=== PATIENT | female | born 1990 | race Caucasian/White ===

== ENCOUNTER 2019-03-29 07:11 | Emergency (ER) | payer OTHER, MEDICAID, SELFPAY ==
[2019-03-29 07:12] VITALS: BP 150/79; PULSE 117; RESP 16; TEMP 36.6; O2SAT 100; BMI 23.3
--- NOTE | 2019-03-29 07:19 | ED.VIS.GEN ---
History of Present Illness Chief Complaint: Laceration Informant: Patient Onset: Today Context: Sudden Onset Timing: Continuous Quality: None Location: Dorsal surface left hand between thumb and index finger Current Severity: There is no pain Maximum Severity: Mild Worsened by: Nothing Relieved by: Nothing Associated Symptoms: None Narrative: Patient presents with laceration webspace dorsal surface left hand. She is right-hand dominant. Last tetanus 2 years ago. Denies paresthesia, anesthesia medics. This occurred at work. She has no other complaints. Prior similar symptoms: No Recent Illness/Hospitalization: No - Past Medical History (1) Marijuana use Status: Acute Comment: No current use (2) Smoker within last 12 months Status: Acute Comment: No current use Past Medical History - Allergies and Home Meds Allergies/Adverse Reactions: Allergies amoxicillin Allergy (Verified 03/29/19 07:15) Anaphylaxis bee pollen Allergy (Verified 03/29/19 07:15) Anaphylaxis latex Allergy (Verified 03/29/19 07:15) Anaphylaxis shellfish derived Allergy (Verified 03/29/19 07:15) Shortness of breath Primary Care Physician: ,Care [GROUP OF PHYSICIANS] - 10 Day for suture removal Care Physician,No Primary [Primary Care Provider] - Prior records reviewed: Yes Lives: Spouse/ Significant Other, With Family Smoking Status: Former smoker - Stopped after finding out she was Alcohol: Rare Drugs: Marijuana Review of Systems Musculoskeletal: Denies: Swelling, Extremity Pain Skin: Reports: Wounds. Denies: Rash, Abrasions Neurological: Denies: Weakness, Parasthesia, Numbness Hematologic: Denies: Easy bruising, Easy bleeding Physical Exam Vital Signs/Narrative: Vital Signs Temp Pulse Resp BP Pulse Ox 03/29/19 07:12 97.8 F 117 H 16 150/79 H 100 Inital Vital Signs reviewed: Yes General: Well nourished, Well developed, No Acute Distress Head: Normocephalic, Atraumatic Eyes: Perrl, EOMI. Negative for: Pale conjunctiva, Scleral icterus Cardiovascular: Regular rate, Regular rhythm Respiratory: No distress Extremities: Nontender, No edema, - - There is a 1.7 cm laceration dorsal surface left hand between the thumb and index finger. Capillary refill is normal. Sensation is normal. Median, axillary and ulnar function intact. Skin: Normal color, No rash, Trauma. Negative for: Cyanosis, Diaphoresis, Jaundice, No Trauma Neurological: Alert, Oriented x3, Cranial nerves II-XII grossly intact, Normal Strength, Normal Sensation Psychological: Normal affect Diagnostic/Tx/Re-eval - Medical Decision Making She has a laceration that is through the dermis. There is no neurovascular findings. Plan is to anesthetize and suture. This occurred with a box knife there is no need for imaging. Procedures - Lacerations No standard instances Length: 0.67 in Depth: Sub Q Shape: Curvilinear gaping Prep: Elva Laceration repair: Irrigated, Lidocaine, Local Irrigated (ml): 100 Number of Sutures/Girma: 4 Suture Information: Ethilon, Simple, 5-0 ED Disposition - Plan for ED Patient: Disposition: Home or Assisted Living Diagnosis: Laceration of left hand without foreign body Instructions: LACERATION, Hand Referrals: Care Physician,No Primary [Primary Care Provider] - Corporate,Care [GROUP OF PHYSICIANS] - 10 Day for suture removal Additional Instructions: 1. Clean wound with peroxide on a Q-tip 3 times a day. 2. Apply bacitracin ointment after cleaning with peroxide. 3. Keep wound clean and dry.
== END 2019-03-29 07:52 | disposition home or self-care (01) ==
PROVIDERS: Emergency Provider Emergency Medicine
DX: S61.412A Laceration without foreign body of left hand, initial encounter (principal); W45.8XXA Other foreign body or object entering through skin, initial encounter; Y93.9 Activity, unspecified; Y92.9 Unspecified place or not applicable; Y99.0 Civilian activity done for income or pay; Z91.040 Latex allergy status; Z87.891 Personal history of nicotine dependence
CPT/HCPCS: 12001; 99284

== ENCOUNTER 2021-08-18 06:27 | Day surgery (SDC) | payer BC, MEDICAID, SELFPAY ==
--- NOTE | 2021-08-02 16:29 | PCM.HP.BLA ---
History and Physical Date of Admission: 08/18/21 HPI: The patient is a 31 year old female presenting for pre-operative visit. She is scheduled for laparoscopic bilateral salpingectomy, for sterilization on 08/02/21. Procedure discussed along with risks, benefits and complications. Other alternatives discussed for management. Consent form signed? Yes. ? ? PAST MEDICAL HISTORY PAST MEDICAL HISTORY Diagnosis Date ? Abnormal Pap smear of cervix ? ? Allergic rhinitis, cause unspecified ? ? Allergic rhinitis ? Asthma ? ? Migraine headache ? ? ? PAST SURGICAL HISTORY PAST SURGICAL HISTORY Procedure Laterality Date ? PAST SURGICAL HISTORY OF ? ? ? BONE MARROW DONOR ? ? ? CURRENT MEDICATIONS Current Outpatient Medications Medication Sig Dispense Refill ? levonorgestrel (MIRENA) 20 mcg/24 hr (5 years) IUD Inserted in office 1 Each 0 ? Zazhoeuz-Ir-Tqh-Fe-FA ( VITAMIN) tab Take 1 tablet by mouth once daily. (Patient not taking: Reported on 06/22/2021 ) 30 tablet 10 ? loratadine (CLARITIN) 10 mg tablet Take 1 tablet by mouth once daily. (Patient not taking: Reported on 06/22/2021 ) 30 tablet 2 ? No current facility-administered medications for this visit. ? ? ALLERGIES: Bee Pollen, Seasonal Allergies, Amoxicillin, Latex, Pineapple, and Shellfish ? PERSONAL HISTORY: SOCIAL HISTORY Social History ? Tobacco Use ? Smoking status: Former Smoker ? Smokeless tobacco: Never Used ? Tobacco comment: quit smoking when found out Vaping Use ? Vaping Use: current everyday user Substance Use Topics ? Alcohol use: Yes ? ? Comment: Occasionally ? Drug use: No ? FAMILY HISTORY: FAMILY HISTORY FAMILY HISTORY Problem Relation Age of Onset ? Migraines Mother ? ? Lipids Sister ? ? Cancer Sister ? ? LEUKEMIA ? other (Scolosis) Sister ? ? Asthma Maternal Grandmother ? ? Diabetes Maternal Grandmother ? ? Hypertension Maternal Grandmother ? ? Thyroid Maternal Grandmother ? ? Stroke Maternal Grandfather ? ? other (M.S.) Paternal Grandmother ? ? Cancer Maternal Aunt ? ? 6 DIFFERENT CANCERS ? Diabetes Paternal Uncle ? ? Breast Cancer Other ? ? MGAUNT ? Emphysema Other ? ? MGGF ? Heart Other ? ? PR,MGGM ? Stroke Other ? ? MGGF ? ? REVIEW OF SYMPTOMS: GENERAL: denies fevers or chills ENDOCRINOLOGY: has not been on steroids Cardiology : denies palpitations or chest pain Respiratory: denies SOB or cough Hematology: denies history of prolonged bleeding or easy bruising or VTE Allergy: Denies history of personal or family history of allergy to anesthesia ? PHYSICAL EXAMINATION: ? VITALS: Last menstrual period 06/18/2021, currently . ? GENERAL: The patient is well nourished, well hydrated in no acute distress. , The patient is oriented to time, place, and person. NECK: Supple. No lynphadenopathy, normal thyroid, no thyromegaly. LUNGS: Clear to auscultation bilaterally. no wheezes, rhonchi or rales HEART: Regular rate and rhythm, Normal heart sounds and No murmurs or gallops ? IMPRESSION: preop - sterilization request ? PLAN: The risks/benefits/alternatives and personal involved for the planned laparoscopic bilateral salpingectomy were reviewed with the patient. Her questions were answered to her satisfaction and she desires to proceed. Consent was signed. I reviewed with her postop instructions and expectations. ? ? I have reviewed and updated past medical and surgical history, medications and allergies Assessment & Plan Assessment/Plan (1) Sterilization:
[2021-08-18] MEDS: Lactated Ringers 1,000 ML 15 ML IV (06:45)
[2021-08-18 06:50] VITALS: PULSE 99; RESP 18; TEMP 36.1; O2SAT 100; BMI 27.5
[2021-08-18] MEDS: Celecoxib 200 MG Capsule 400 MG PO (06:56)
[2021-08-18] MEDS: Acetaminophen 500 MG Tablet 1000 MG PO (06:56)
[2021-08-18 07:03] LABS: Hematocrit 42.2 % (37-47); Hemoglobin 14.3 g/dL (12.0-15.0); Mean Corp Hgb Conc 33.9 g/dL (32-36); Mean Corpuscular Hgb 30.6 pg (27.0-32.0); Mean Corpuscular Volume 90.4 fL (81-99); Mean Platelet Vol. 9.6 fl (6.2-12.0); Platelet Count 273 K/mm3 (150-450); RBC Distribution Width CV 12.2 % (11.6-14.6); RBC Distribution Width SD 40.1 fl (35.1-43.9); Red Blood Count 4.67 M/mm3 (4.2-5.4); White Blood Count 6.2 K/mm3 (4.4-11.0)
[2021-08-18 07:09] LABS: Internal QC Validated? YES +Cl - CLEAR BKGD; Pregnancy, Urine Negative Negative
--- NOTE | 2021-08-18 08:14 | PCM.OPRPT ---
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
--- NOTE | 2021-08-18 08:25 | FALS_PTH ---
PATIENT: ZAINA MENDES [place] [facility] [id number] AGE/SX: 31/F ROOM: RE08/18/[address]: Dr. Kindra Blair MD : 1990 BED: DIS: 08/18/2021 SPEC #: [id number] RECD: 08/18/21 12:24 STATUS: SERENITY REFranky #: [id number] CHRISTY: 08/18/21 08:[address]: Kindra Blair DEPT: SURGICAL PATHOLOGY RECD BY: Uvaldo Mann ENTERED: 08/18/21 13:28 SP TYPE: FALL TUBES OTHR DR: No Primary Care Phys Tissues: Fallopian tube Procedures: Surgery Specimen Level II HEADER OPERATION: Laparoscopic salpingectomy PRE-OP DIAGNOSIS: Sterilization TISSUE SUBMITTED: Bilateral fallopian tubes MICROSCOPIC DIAGNOSIS Bilateral fallopian tubes, salpingectomy: Bilateral fallopian tubes, no pathologic diagnosis. SJ:alida 08/19/2021 MICROSCOPIC DESCRIPTION Slides are reviewed. GROSS DESCRIPTION Received in fixative is one container labeled with the patient's name and designated bilateral fallopian tubes. The specimen consists of bilateral fallopian tubes including fimbrial ends measuring 7.5 cm in length and 0.4 cm in diameter and 7 cm in length and 0.5 cm in diameter. The fallopian tubes are not identified as right or left. Sections reveal unremarkable cut surfaces. Machine Operator Assistant sections are submitted in two cassettes with each cassette containing one fallopian tube. / SJ:alida 08/18/2021 TC:4 CPT: 13915 x2
--- NOTE | 2021-08-18 09:00 | DCINST_ITS ---
Discharge Instructions Follow Up Care Test Results: Test results from this visit will be discussed in further detail at your follow- up appointment, if applicable. Discharge Plan Admission Primary Reason for Your Visit: Tubal sterilization Attending Provider: Kindra Blair Primary Care Provider: Naomi Lu Primary Instructions Forms: Work Excuse Patient Instructions: Discharge Instruction for ... Discharge Orders/Prescriptions Prescriptions: New ibuprofen [ibuprofen] 600 MG tablet 600 mg PO Q6H PRN (Reason: Pain) Qty: 60 1RF Discontinued naproxen 500 mg Tablet 500 mg PO BID PRN (Reason: Pain) Referrals / Follow Up: Care Physician,No Primary [Primary Care Provider] - Disposition Disposition (needs filled in before D/C Order can be placed): Home, Self Care
[2021-08-18] MEDS: Bupivacaine Mpf 0.5% 30 ML VIAL (09:07)
--- NOTE | 2021-08-18 09:28 | PCM.OPRPT ---
Problems Associated Problem List Diagnoses (1) Vaginal delivery: Report of Operation Date of Procedure: 08/18/21 Pre-Operative Diagnosis: sterilzation request Post-Operative Diagnosis: same Surgery/Procedure Performed:: Laparoscopic bilateral salpingectomy Description of Surgical Findings:: Normal uterus, tubes and ovaries, normal cervix and vagina Surgeon: Kindra Blair value analysis coordinator: None Type of Anesthesia: General Anesthesiologist: Latia Ochoa Special Medications: none Specimen's removed: bilateral fallopian tubes Drains: none Estimated Blood Loss (mL): 5 Fluids Replaced: 500 Description of Procedure: The patient was taken to the operating room where she was prepped and draped in the dorsolithotomy position. A weighted speculum was placed in the vagina and the anterior lip of the cervix was grasped with a tenaculum. The Rachel uterine manipulator was placed and the remainder of the instruments were removed from the vagina. Attention was turned to the abdomen. All port sites were infiltrated with 0.5% Marcaine before skin incisions were made. A 5 mm intraumbilical incision was made. The anterior abdominal wall was tented up with 2 towel clamps while a 5 mm blade less trocar and sleeve were directly inserted. Intraperitoneal placement was confirmed with the laparoscope. The pneumoperitoneum was created and the underlying abdominal contents were intact. The patient was placed in Trendelenburg. Right and left lower quadrant ports were placed under direct visualization lateral to the inferior epigastric vessels. The bowel was swept away and the above findings were noted. The LigaSure device was used to clamp seal and transect the antimesenteric portions of the right tube to the cornual insertion of the uterus. The tube was amputated from the uterus and the pedicles were all confirmed to be hemostatic. The same procedure was performed on the contralateral side. The specimens were brought out through a 5 mm port. The pedicles were again examined and found to be hemostatic. The lateral ports were removed under direct visualization and no active bleeding was noted. The pneumoperitoneum was released. The skin incisions were closed with Monocryl suture in a subcuticular fashion and skin glue. The vaginal instruments were removed and the vaginal sweep was completed by me. The entire procedure was performed by me. All sponge and needle counts were correct and the patient was taken to the recovery room in stable condition. Grafts/Implants Used: none Procedure Start Time: :07 Procedure Stop Time: :21 Complications none Admit VTE Documentation VTE Present on Admission: No VTE Mechan Device Prophylaxis: SCD's VTE Pharm Prophylaxis ordered?: No Reason prophylaxis not ordered:: Procedure Not Indicated
[2021-08-18 09:30] VITALS: BP 119/61; BP 123/67; PULSE 66; RESP 16; TEMP 36.4; O2SAT 97
[2021-08-18 09:45] VITALS: BP 123/67; BP 99/88; PULSE 63; RESP 16; O2SAT 100
[2021-08-18 10:10] VITALS: BP 115/57; BP 123/67; PULSE 65; RESP 16; TEMP 37.1; O2SAT 100
[2021-08-18 11:13] VITALS: BP 119/68; BP 123/67; PULSE 67; RESP 16; TEMP 36.1; O2SAT 98
== END 2021-08-18 11:15 | disposition home or self-care (01) ==
LOC: SDC 06:30 → AC 06:32
PROVIDERS: Visit Provider Obstetrics & Gynecology
PROC: (CPT 58661; principal; 2021-08-18 08:10)
DX: Z30.2 Encounter for sterilization (principal); Z87.891 Personal history of nicotine dependence
CPT/HCPCS: 58661; 81025; 85027; 88302; J7120; C1760; J2405

== ENCOUNTER 2024-02-24 09:06 | Emergency (ER) | payer BC, SELFPAY ==
[2024-02-24 09:07] VITALS: BP 109/68; PULSE 98; RESP 18; TEMP 37.2; O2SAT 100; BMI 28.7
--- NOTE | 2024-02-24 10:28 | US_ITS ---
We are attempting to reach an attending provider to discuss findings. An addendum with communication details will be sent when the communication is complete. EXAM: US PELVIS TRANSVAGINAL CLINICAL INDICATION: PELVIC PAIN TECHNIQUE: Transvaginal pelvic ultrasound was performed with grayscale and color Doppler imaging. Transvaginal imaging was used for better evaluation of the endometrium and adnexa. COMPARISON: No relevant prior studies available. FINDINGS: UTERUS/CERVIX: An IUD is present. It appears to be rotated in the fundal portion of the uterus. Anteverted. There is no uterine mass. The uterus measures 8.3 x 5.1 x 3.7 cm. The endometrial stripe measures 0.4 cm in thickness. RIGHT OVARY: No significant abnormality. Blood flow is present in the right ovary. The right ovary measures 3.1 x 2.0 x 1.5 cm. LEFT OVARY: There is a 4.1 cm left ovarian hemorrhagic cyst with typical reticulations/retraction. ACR White Paper guidelines (Baxter, et. al. Radiology 2010; 256(3):943-954) suggest no follow-up is necessary. Blood flow is present in the left ovary. The left ovary measures 4.8 x 4.2 x 4.2 cm. FREE FLUID: Moderate to large volume complex fluid within the peritoneum. BLADDER: Empty bladder which cannot be evaluated with this probe. US/Transvaginal Non- IMPRESSION: 1. There is a 4.1 cm left ovarian hemorrhagic cyst with typical reticulations/retraction. Associated moderate to large volume hemoperitoneum. 2. An IUD is present. It appears to be rotated in the fundal portion of the uterus. Electronically Signed: Jelani Felder DO at 12:12 EST ,
--- NOTE | 2024-02-24 10:29 | ED.VIS.FEGU ---
HPI HPI - Female History of Present Illness Chief Complaint: Female C/O Detail of Chief Complaint: Pelvic pain starting Sunday night after intercourse. Informant: patient Pain Pain: Positive for Pelvic Pain Onset: Days Context: Gradual Onset Timing: Continuous Quality: Positive for Cramping and Stabbing Location: RLQ, LLQ and Suprapubic Current Severity: 6/10 Maximum Severity: 6/10 Worsened by: Movement Bleeding Issue: Negative for Vaginal bleeding Associated Symptoms Associated Symptoms: Negative for Dysuria Test: Positive Narrative Narrative: 33-year-old female prior tubal ligation. Currently has Mirena IUD it has been in place for 7 years. States entering intercourse on Sunday evening she started having bilateral lower quadrant suprapubic pelvic pain. Denies vaginal bleeding or discharge. Has never had pain like this before. Currently states about a 6 out of 10 pain. Denies any vaginal bleeding or discharge. No history of ovarian cyst. No history of pelvic infection. Pain is worse with movement. Prior similar symptoms: No Recent Illness/Hospitalization: No PFSH PFSH Medical History Wears contact lenses Wears partial dentures Anxiety Alcohol use Low iron Migraine headache Heartburn Vaping nicotine dependence, tobacco product History of pain when walking Sterilization Home Medications ?Medication ?Instructions ?Recorded ?Last Taken ?Type ibuprofen 600 mg tablet 600 mg PO Q6H PRN Pain #60 TABLETS 08/18/21 Unknown Rx Allergy/AdvReac Type Severity Reaction Status Date / Time amoxicillin Allergy Anaphylaxis Verified 02/24/24 09:07 bee pollen Allergy Anaphylaxis Verified 02/24/24 09:07 latex Allergy Anaphylaxis Verified 02/24/24 09:07 pineapple Allergy Anaphylaxis Verified 02/24/24 09:07 shellfish derived Allergy Shortness Verified 02/24/24 09:07 of breath Surgical History Hx of tooth extraction Hx of bone marrow donation Social History Smoking Status: Current every day smoker tobacco type: smokeless tobacco ROS ROS ED ROS Narrative Denies recent illness. No fever. Constitutional Constitutional ED: Denies chills or fever(s) Eyes Eyes: Denies blurry vision ENT ENT ED: Denies ear pain Cardiovascular Cardiovascular: Denies chest pain Respiratory/Chest Respiratory/Chest: Denies cough or dyspnea Gastrointestinal Gastrointestinal: Denies abdominal pain Genitourinary Genitourinary ED: Denies dysuria Musculoskeletal Musculoskeletal: Denies arthralgias Integumentary Denies abscess Neurologic Neurologic: Denies headache(s) Psychiatric Psychiatric: Denies anxiety Endocrine Endocrinology: Denies heat intolerance Hematologic/Lymphatic Hematologic/Lymphatic: Denies easy bleeding Allergic/Immunologic Allergic/Immunologic ED: Denies mouth swelling EXAM Physical Exam Narrative Exam Narrative: Well-appearing 33-year-old female. Vital signs stable afebrile. Sitting upright in bed. Significant other at bedside. H EENT exam unremarked. Neck nontender. Lungs clear. Heart regular rhythm rate about 95 no murmur. Chest wall ribs nontender. Abdomen soft, nondistended normal bowel sounds without peritoneal signs. She complains of pain suprapubic in both lower quadrants its minimally if at all tender to palpation. There is no hernia or mass. No signs of trauma. Moves all 4 extremities. Normal range of motion. Normal strength. No edema. Back nontender. She is awake and alert. No focal motor deficits. Const Vital Signs: 02/24/24 09:07 02/24/24 11:07 02/24/24 13:00 Temperature 98.9 F Temperature Source Temporal Pulse Rate 98 80 76 Respiratory Rate 18 16 16 Blood Pressure 109/68 121/44 H Blood Pressure Mean 81 69 Pulse Ox 100 100 Oxygen Delivery Method Room Air Room Air Positive well nourished and well developed; Negative for cachectic, contractures or unkempt General Appearance ED: well developed and NAD; Negative for unkempt, cachectic, contractures or pallor Nutritional Appearance: Negative for cachectic HEENT Reports moist mucous membranes Negative for trauma or tenderness Eyes PERRL and EOMs intact bilaterally General Eye ED: Negative for pale conjunctiva or scleral icterus Neck no lymphadenopathy, supple and no JVD General: Negative for other Thyroid: Negative for tender Chest Wall inspection of chest normal and palpation of chest normal Resp normal respiratory effort and clear to auscultation bilaterally Effort and Inspection: Negative for pain with movement Auscultation: Negative for rales, rhonchi, wheezes or diminished lung sounds Cardio regular rate, regular rhythm, S1 normal heart sound, no murmurs and no JVD GI normal to inspection, nondistended, normoactive bowel sounds, soft to palpation, non-tender, non-distended and no masses Palpation: Negative for tender or guarding Back/Spine no CVA tenderness General Back: Negative for CVA tenderness Cervical Spine: Negative for cervical spine tenderness Thoracic Spine / Upper Back: Negative for thoracic spinal tenderness Lumbar Spine / Lower Back: Negative for lumbar spinal tenderness Sacrum: Negative for other Extremity normal to inspection and full ROM General Extremety ED: Negative for edema or tenderness General Extremity: Negative for edema Neuro oriented x3 and CN's II-XII intact bilaterally Sensorium / Orientation: alert, oriented to person, oriented to place and oriented to time; Negative for confused, lethargic or stuporous Motor Exam: strength 5/5 throughout Psych mental status grossly normal Appearance: Negative for unkempt Attitude: No agitated Speech: No other Mood & Affect: Negative for depressed, anxious or tearful Skin no rashes or lesions noted and no wounds General Skin Exam: Negative for jaundice or pallor Rashes: No rashes noted MDM MDM MDM Narrative Medical decision making narrative: 33-year-old female plan bilateral pelvic pain started Sunday after having intercourse. Concerned her IUD may be out of place. UA will be checked in a would be unlikely she is due to her tubal ligation. Rule out UTI. No history of any type of infection. Pelvic exam will be done. Ultrasound being obtained. Repeat exam pelvic exam done around 12:50 PM. Speculum exam no bleeding or discharge. Cervix seen. String protruding from the cervix from the IUD. She has mild right adnexal pain really no suprapubic or left adnexal pain. The cyst is on the left but really is not very painful to deep palpation. Repeat exam patient is doing well at 1:20 PM. I did speak with her HEALTH SAFETY COORDINATOR Dr. Kindra Blair. She will have her follow-up in the office to be reevaluated. Possibly remove the IUD. And shows no further bleeding from the hemorrhagic cyst. Patient will be instructed no intercourse and no heavy impact working out. Motrin and Tylenol for pain. History & Record Review Discussion w/independent historian: Patient Lab Data Attestation: I reviewed the patient's lab results. Lab results narrative: UA normal. No infection. Urine test negative. Ultrasound read by the radiologist shows a left 4 cm hemorrhagic cyst with blood. Rotated IUD. CBC showed a normal white count of 9. H&H 13.7 and 41 which is patient's baseline hemoglobin hematocrit. Platelets 280. Labs: Laboratory Results - last 24 hr 02/24/24 02/24/24 10:40 12:43 WBC 9.1 RBC 4.56 Hgb 13.7 Hct 41.1 MCV 90.1 MCH 30.0 MCHC 33.3 RDW Std Deviation 40.8 RDW Coeff of Dwain 12.3 Plt Count 280 MPV 10.6 Urine Color Yellow Urine Clarity Clear Urine pH 7.0 Ur Specific [place] 1.005 Urine Protein Negative Urine Glucose (UA) Normal Urine Ketones Negative Urine Occult Blood Negative Urine Nitrite Negative Urine Bilirubin Negative Urine Urobilinogen Normal Ur Leukocyte Esterase 25 H Urine RBC 0 SEEN Urine WBC 0-5 SEEN Ur Squamous Epith Cells 0-5 SEEN Urine Bacteria 0 SEEN Urine Mucus 0 SEEN Urine Test Negative Radiography Diagnostic Testing: Clinical Impression(s) from Imaging Studies Transvaginal US 02/24/24 10:28 IMPRESSION: 1. There is a 4.1 cm left ovarian hemorrhagic cyst with typical reticulations/retraction. Associated moderate to large volume hemoperitoneum. 2. An IUD is present. It appears to be rotated in the fundal portion of the uterus. Electronically Signed: Jelani Felder DO at 12:12 EST , ADDENDUM: 02/24/24 1227 IMPRESSION: 1. There is a 4.1 cm left ovarian hemorrhagic cyst with typical reticulations/retraction. Associated moderate to large volume hemoperitoneum. 2. An IUD is present. It appears to be rotated in the fundal portion of the uterus. N.B. : The above Results were Read Back by Jelani Felder DO to Ryan Hester MD, and understanding confirmed on 02/24/2024 12:20:09 (ET). Electronically Signed: Jelani Felder DO at 12:12 EST , Discharge Plan Triage Chief Complaint: Female C/O ED Provider: Ryan Hester Dx/Rx/DC Orders Clinical Impression: Pelvic pain, Hemorrhagic cyst of left ovary, History of use of contraceptive intrauterine device (IUD), Hx of tubal ligation Instructions: ED Ovarian Cyst Prescriptions: No Action ibuprofen [ibuprofen] 600 MG tablet 600 mg PO Q6H PRN (Reason: Pain) Qty: 60 1RF Primary Care Provider: Care Physician,No Primary Referrals: Kindra Blair MD [Med Staff - Active Staff] - As soon as possible Care Physician,No Primary [Primary Care Provider] - Activity Restrictions/Additional Instructions: You have a left ovarian cyst that had some bleeding which irritates the pelvis and causes pain. Also your IUD is out of position little rotated. I spoke to Dr. Kindra Blair. Call our office on Sunday and she will see you soon as possible. You and her can discuss removing the IUD. Motrin and Tylenol for pain. No intercourse at this time. No high impact sports or exercise. Return if worsening abdominal pain. Print Language: Kyrgyz Disposition Disposition: Home, Self Care
[2024-02-24 10:46] LABS: Bacteria 0 SEEN /hpf (None Seen); Mucous, Urine 0 SEEN /hpf (<or=2+); Red Blood Cells-Urine 0 SEEN /hpf (0-5)
[2024-02-24 10:47] LABS: Color, Urine Yellow (Yellow); Glucose, Dipstick Normal (Normal); Ketone-Dipstick Negative (Negative); Leukocyte Esterase-Dipstick 25 /ul (Negative); Nitrite-Dipstick Negative (Negative); Occult Blood-Urine Negative /ul (Negative); Protein-Dipstick Negative (Negative); Specific Gravity, Urine 1.005 (1.002-1.030); Urine Bilirubin Dipstick Negative (Negative); Urine Clarity Clear (Clear); Urine Urobilinogen Normal (Normal)
[2024-02-24 10:54] LABS: Internal QC Validated? YES +Cl - CLEAR BKGD; Pregnancy, Urine Negative Negative; Squamous Epithelial Cells - UA 0-5 SEEN /hpf (5-10); White Blood Cells 0-5 SEEN /hpf (0-5)
[2024-02-24 11:07] VITALS: PULSE 80; RESP 16
[2024-02-24 13:00] VITALS: BP 121/44; PULSE 76; RESP 16; O2SAT 100
[2024-02-24 13:07] LABS: Hematocrit 41.1 % (37-47); Hemoglobin 13.7 g/dL (12.0-15.0); Mean Corp Hgb Conc 33.3 g/dL (32-36); Mean Corpuscular Volume 90.1 fL (81-99); Mean Platelet Vol. 10.6 fl (6.2-12.0); Platelet Count 280 K/mm3 (150-450); RBC Distribution Width CV 12.3 % (11.6-14.6); RBC Distribution Width SD 40.8 fl (35.1-43.9); Red Blood Count 4.56 M/mm3 (4.2-5.4); White Blood Count 9.1 K/mm3 (4.4-11.0)
[2024-02-24 13:20] VITALS: BP 121/44; PULSE 76; RESP 16; TEMP 37.2; O2SAT 100
[2024-02-24 13:27] LABS: Anion Gap 4 (5-15); BUN 8 mg/dL (7-18); Calcium,Total 9.1 mg/dL (8.5-10.1); Chloride 110 mmol/L (98-107); EST Glomerular Filtration Rate 87 mL/min (>60); Est Glom Filt Rate - Afr Amer 106 mL/min (>60); Estimated Creatinine Clearance 102.43 ml/min; Glucose 98 mg/dL (74-106); Potassium 4.3 mmol/L (3.5-5.1); Sodium Level 140 mmol/L (136-145)
== END 2024-02-24 13:32 | disposition home or self-care (01) ==
PROVIDERS: Emergency Provider Emergency Medicine; Visit Provider Emergency Medicine
DX: N83.202 Unspecified ovarian cyst, left side (principal); R10.2 Pelvic and perineal pain; F17.290 Nicotine dependence, other tobacco product, uncomplicated; Z98.51 Tubal ligation status; Z97.5 Presence of (intrauterine) contraceptive device; Z88.0 Allergy status to penicillin
CPT/HCPCS: 76830; 80048; 81001; 81025; 85027; 99283; A4216